=== PATIENT | male | born 1960 | race Caucasian/White ===

== ENCOUNTER → 2018-03-04 19:17 | Outpatient (CLI) | payer OTHER, SELFPAY ==
--- NOTE | 2018-03-04 19:20 | DI.MRI.S_ITS ---
PROCEDURE: MR SHOULDER RT WO CON INDICATIONS: 57 year-old male with right shoulder impingement syndrome, chronic right shoulder pain and decreased range of motion. TECHNIQUE: Noncontrast oblique coronal T2 fast spin echo with fat saturation, oblique sagittal T1 spin echo and T2 fast spin echo with fat saturation, axial T1 spin echo and T2 fast spin echo with fat saturation through the shoulder. COMPARISON: None. FINDINGS: Image quality: Compromised by large patient body habitus, as a dedicated shoulder coil was unable to be used. Rotator cuff: On coronal image 15, there is low to moderate grade partial-thickness articular surface tear involving the anterior supraspinatus tendon fibers. The infraspinatus and subscapularis tendons appear intact. No rotator cuff muscle atrophy on sagittal images. Bones and bursae: No bone marrow contusions or fractures. No acromioclavicular joint degeneration. The acromion demonstrates conventional anatomy, without an os acromiale. No pathologic subacromial-subdeltoid or subcoracoid bursal fluid is present. Capsule and soft tissues: In the absence of intra-articular contrast, the labrum and glenohumeral ligaments appear intact. The long head of the biceps tendon demonstrates normal location and morphology. The rotator interval appears normal, without fibrosis. The coracohumeral ligament is normal in thickness. IMPRESSION: Low to moderate grade partial-thickness articular surface tear of the anterior supraspinatus tendon fibers. Dictated by: Zen Alberto M.D. on 03/05/2018 at 10:28 Approved by: Zen Alberto M.D. on 03/05/2018 at 10:35
== END ==
PROVIDERS: Visit Provider Orthopaedic Surgery
DX: M75.111 Incomplete rotator cuff tear or rupture of right shoulder, not specified as traumatic (principal); M75.41 Impingement syndrome of right shoulder
CPT/HCPCS: 73221

== ENCOUNTER → 2018-04-22 18:32 | Outpatient (CLI) | payer OTHER, SELFPAY ==
--- NOTE | 2018-04-22 | DI.MRI.S_ITS ---
PROCEDURE: MR HAND LT WO/W CON INDICATIONS: ARTHROPATHY TECHNIQUE: Coronal and axial T1 spin echo and T2 fast spin echo with fat saturation. Post-contrast coronal and axial T1 spin echo with fat saturation images through the left hand and wrist. COMPARISON: None. FINDINGS: Image quality: Excellent. Bones and cartilage: 5 mm focus of T1 hypointensity, T2 hyperintensity and enhancement is seen within the fifth metacarpal head, for example image 13 series 4B with erosions. Additional foci with similar signal changes and enhancement present in the base of the index finger proximal phalanx as well as the pisiform (image 14 series 10 ) Synovium: There is diffuse synovial enhancement and thickening, which is most prominent at the second MTP joint although also present at the index finger PIP joint, and surrounding the ulnar styloid in keeping with synovitis. Soft tissues: Fluid surrounds the flexor tendon slips of the index finger in keeping with synovitis. No definite joint effusion seen. IMPRESSION: Pauci-articular erosions identified at the second MTP joint, pisiform and fifth metacarpal head. Index finger flexor tenosynovitis. Prominent second MTP joint synovitis, with additional involvement seen at the index finger PIP joint, and surrounding the ulnar styloid. Dictated by: Sandro Sharpe M.D. on 04/23/2018 at 8:52 Approved by: Sandro Sharpe M.D. on 04/23/2018 at 9:03
== END ==
PROVIDERS: Visit Provider Specialist/Technologist Athletic Trainer
DX: M65.842 Other synovitis and tenosynovitis, left hand (principal)
CPT/HCPCS: 73220; A9579

== ENCOUNTER → 2018-11-08 15:12 | Outpatient (CLI) | payer OTHER, SELFPAY ==
--- NOTE | 2018-11-08 | DI.RAD.S_ITS ---
PROCEDURE: XR CHEST 2V INDICATIONS: PERSISTENT COUGH,URI,CHILLS,SWEATS TECHNIQUE: 2 views of the chest were acquired. COMPARISON: None. FINDINGS: Surgical changes and devices: None. Lungs and pleura: No pleural effusions or pneumothorax. Lungs are clear. Mediastinum: Mediastinal contours are normal. Heart size is normal. Bones and chest wall: No suspicious bony abnormalities. Soft tissues appear unremarkable. IMPRESSION: No acute cardiopulmonary findings. Dictated by: Meena Cronin M.D. on 11/08/2018 at 16:58 Approved by: Meena Cronin M.D. on 11/08/2018 at 16:59
== END ==
PROVIDERS: Family Provider Nurse Practitioner Family; PCP Nurse Practitioner Family; Visit Provider Nurse Practitioner Family
DX: R05 Cough (principal); R61 Generalized hyperhidrosis; R68.83 Chills (without fever); J06.9 Acute upper respiratory infection, unspecified
CPT/HCPCS: 71046

== ENCOUNTER 2020-11-03 10:19 | Emergency (ER) | payer OTHER, SELFPAY ==
[2020-11-03] VITALS (10 sets, daily range): BP systolic 142–182; BP diastolic 88–91; PULSE 77–87; RESP 12–22; TEMP 36.7; O2SAT 97–100; BMI 31.3
--- NOTE | 2020-11-03 10:30 | DI.RAD.S_ITS ---
PROCEDURE: XR CHEST 1V INDICATIONS: chest pain TECHNIQUE: One view of the chest was acquired. COMPARISON: [facility], CR, XR CHEST 2V, 11/08/2018, 15:19. FINDINGS: Surgical changes and devices: None. Lungs and pleura: Lungs are clear. No pleural effusions or pneumothorax. Mediastinum: Mediastinal contours appear normal. Heart size is normal. Bones and chest wall: No suspicious bony lesions. Overlying soft tissues appear unremarkable. IMPRESSION: No acute cardiopulmonary disease. Dictated by: Harley Hamilton M.D. on 11/03/2020 at 11:55 Approved by: Harley Hamilton M.D. on 11/03/2020 at 12:00
--- NOTE | 2020-11-03 10:32 | ED.CHESTPAIN ---
HPI - Chest Pain General Chief Complaint: Chest Pain Stated Complaint: Heavy Feeling in chest Time Seen by Provider: 11/03/20 10:29 Source: patient Mode of arrival: Ambulatory Limitations: no limitations History of Present Illness HPI narrative: Patient is a 59-year-old male. History of hypertension. Also has a history of psoriasis and psoriatic arthritis. Takes methotrexate for this. Is here for evaluation of chest pressure. He states he has had constant pressure for at least the past 3 weeks. He states that he goes to bed with it at night and wakes up with a him morning. Does not seem to get better worse with movement or palpation or breathing. He also states that for the same amount of time especially at night he has palpitations. He states this happens most the time when he lays down. Has had it during the day but most often occurs at night. Related Data Home Medications Medication Instructions Recorded Confirmed losartan [Cozaar] 100 mg PO BEDTIME #0 05/10/17 11/03/20 amlodipine 5 mg tablet 5 mg PO QAM 10/27/18 11/03/20 folic acid 1 mg tablet 1 mg PO DAILY 10/27/18 11/03/20 methotrexate sodium 2.5 mg tablet 20 mg PO QWEEK tab 10/27/18 11/03/20 Allergies Allergy/AdvReac Type Severity Reaction Status Date / Time No Known Drug Allergies Allergy Verified 11/03/20 10:27 Review of Systems Constitutional Constitutional: Denies fever(s) and Denies headache(s) Eyes Eyes: Denies change in vision ENT Ears, Nose, Mouth, and Throat: Denies headache(s) Cardiovascular Cardiovascular: Denies syncope, Denies irregular heart rhythm, Reports palpitations (Pounding) and Denies dyspnea Comments: Chest pressure Respiratory Respiratory: Denies cough and Denies dyspnea Gastrointestinal Gastrointestinal: Denies abdominal pain, Denies nausea and Denies vomiting Genitourinary Genitourinary: Denies dysuria Genitourinary: Denies dysuria Neurologic Neurologic: Denies behavioral changes, Denies confusion, Denies syncope and Denies headache(s) Psychiatric Psychiatric: Denies behavioral changes and Denies confusion Endocrine Endocrine: Reports palpitations (Pounding) Patient History Medical History Hypertension Psoriasis Psoriatic arthritis Social History (Reviewed 11/03/20 @ 10:58 by TEOFILO Cowan Smoking Status: Never smoker Smoking Status: Never smoker alcohol intake frequency: 0-2 drinks per day Substance Use Type: does not use Exam Initial Vital Signs Initial Vital Signs: Vital Signs Temperature 98.1 F 11/03/20 10:20 Pulse Rate 87 11/03/20 10:20 Respiratory Rate 14 11/03/20 10:20 Blood Pressure 182/90 H 11/03/20 10:20 Pulse Oximetry 99 11/03/20 10:20 Const General: cooperative and comfortable Limitations: mental status not altered HENMT Head: normal to inspection and normocephalic Resp Effort & Inspection: normal respiratory effort Auscultation: clear to auscultation bilaterally Cardio Rhythm: regular rhythm GI Inspection: non-distended Palpation: soft Skin Lesions: no lesions Rashes: no rashes Neuro General: patient alert, patient awake and patient oriented x3 Cognition: normal cognition Speech: speech normal Extrem General: capillary refill normal Psych Appearance: grossly normal and well kempt Scores GCS Amadou coma scale eye opening: Spontaneous [place] coma scale verbal response: Orientated Amadou coma scale motor response: Obey commands [place] coma scale total score: 15 HEART Score Heart Score history: Slightly Suspicious Heart Score EKG: Normal Heart Score Age: 45-64 years old Heart Score risk factors: 1-2 risk factors Heart Score troponin: < or = to normal limit Heart Score Total: 2 Course Orders Ordered: ED Orders 11/03/20 10:26 Complete Blood Count AUTO DIFF Stat Comprehensive Metabolic Panel Stat Lipase Stat Troponin & CK Cardiac Panel Stat 11/03/20 10:30 XR chest 1V Stat EKG-12 Lead Stat Vital Signs Vital signs: Vital Signs - 8 hr 11/03/20 10:20 11/03/20 10:24 11/03/20 10:30 Temperature 98.1 F Pulse Rate 87 84 82 Respiratory Rate 14 19 17 Blood Pressure 182/90 H Pulse Oximetry 99 100 99 11/03/20 10:45 11/03/20 11:00 11/03/20 11:08 Temperature Pulse Rate 84 79 78 Respiratory Rate 22 12 15 Blood Pressure 145/89 H Pulse Oximetry 99 98 98 11/03/20 11:15 11/03/20 11:30 11/03/20 11:45 Temperature Pulse Rate 77 77 78 Respiratory Rate 15 13 19 Blood Pressure 148/88 H 146/89 H 142/91 H Pulse Oximetry 99 98 97 11/03/20 12:00 Temperature Pulse Rate 77 Respiratory Rate 13 Blood Pressure 142/91 H Pulse Oximetry 99 MDM - Chest Pain Lab Data Attestation: I reviewed the patient's lab results. Result diagrams: 11/03/20 10:26 11/03/20 10:26 Labs: Lab Results 11/03/20 11/03/20 Range/Units 10:26 10:26 WBC 12.3 H (4.5-11.0) X10^3/uL RBC 5.59 (4.5-5.9) X10^6/uL Hgb 18.0 H (13.5-17.5) g/dL Hct 52.9 (41-53) % MCV 94.6 (80-100) fL MCH 32.2 (26-34) PG MCHC 34.0 (30-36) % RDW 13.5 (11.6-14.8) % Plt Count 231 (150-400) X10^3/uL Neut % (Auto) 59.4 (50-75) % Lymph % (Auto) 27.6 (25-40) % [place] % (Auto) 10.8 (3-14) % Eos % (Auto) 1.3 L (2-4) % Baso % (Auto) 0.9 (0-2) % Neut # (Auto) 7300 H (8020-4773) /uL Lymph # (Auto) 3400 (3627-4434) /uL [place] # (Auto) 1300 H (0-900) /uL Eos # (Auto) 200 (0-450) /uL Baso # (Auto) 100 (0-100) /uL Sodium 140 (137-145) mmol/L Potassium 3.7 (3.4-5.1) mmol/L Chloride 106 (98-107) mmol/L Carbon Dioxide 27 (22-32) mmol/L BUN 15 (9-20) mg/dL Creatinine 0.94 (0.66-1.25) mg/dL Estimated GFR > 60.0 (>60) mL/min BUN/Creatinine Ratio 16.0 (6-22) Glucose 86 (80-110) mg/dL Calcium 9.1 (8.4-10.2) mg/dL Total Bilirubin 0.4 (0.2-1.3) mg/dL AST 30 (17-59) IU/L ALT 39 (<50) IU/L Alkaline Phosphatase 69 (38-126) U/L Total Creatine Kinase 73 (55-170) U/L CK-MB (CK-2) TNP CK-MB (CK-2) Rel Index TNP Troponin I < 0.012 (0.01-0.034) ng/mL Total Protein 7.4 (6.3-8.2) g/dL Albumin 4.6 (3.5-5.0) g/dL Globulin 2.8 (1.7-4.1) g/dL Albumin/Globulin Ratio 1.6 (1.0-2.8) Lipase 158 (23-300) U/L Imaging Data Chest x-ray: Radiologist's Impression: [address] [address]BV[address] ReportSigned Patient: Fabian Celis LMR#: [id number]: 1960Acct:[id number]/Sex: 59 / MDate of Service: 11/03/20Loc: EDAccession Number: [id number] Procedure: XR chest 1V Ordering Provider: Alberto Nicole D.O. PROCEDURE: XR CHEST 1V INDICATIONS: chest pain TECHNIQUE: One view of the chest was acquired. COMPARISON: [facility], , XR CHEST 2V, 11/08/2018, 15:19. FINDINGS: Surgical changes and devices: None. Lungs and pleura: Lungs are clear. No pleural effusions or pneumothorax. Mediastinum: Mediastinal contours appear normal. Heart size is normal. Bones and chest wall: No suspicious bony lesions. Overlying soft tissues appear unremarkable. IMPRESSION: No acute cardiopulmonary disease. Dictated by: Harley Hamilton M.D. on 11/03/2020 at 11:55 Approved by: Harley Hamilton M.D. on 11/03/2020 at 12:00 ECG Data Attestation: I personally reviewed and interpreted this ECG as follows: Prior ECG tracings: not available for review Interpretation: Sinus rhythm Ventricular rate of 85 Normal axis Normal QRS Normal QTC No ST T wave changes MDM Narrative Medical decision making narrative: Patient is a low risk heart score. Has had no ectopy on the monitors. Troponin is negative after several weeks of chest pressure. Discussed with him the importance of following up with his primary doctor to discuss stress testing. With regard to his palpitations informed that he should talk to his primary doctor about obtaining a Holter monitor. He was given return precautions and follow-up instructions. He expressed understanding and agreement. Discharge Plan Departure Patient Disposition: Home Clinical Impression: Atypical chest pain, Heart palpitations Instructions: DI for Atypical Chest Pain, DI for Palpitations Activity Restrictions/Additional Instructions: Recommend you talk with your primary doctor about further evaluation to include stress testing and a Holter monitor. Return to the emergency department for any new or worsening symptoms Prescriptions: No Action methotrexate sodium 2.5 mg tablet 20 mg PO QWEEK RF: 0 folic acid 1 mg tablet 1 mg PO DAILY RF: 0 amlodipine 5 mg tablet 5 mg PO QAM RF: 0 losartan [Cozaar] 100 MG tablet 100 mg PO BEDTIME Qty: 0 RF: 0 Referrals: Elly Busch ARNP [Primary Care Provider] -
[2020-11-03 10:37] LABS: Add Manual Diff / Slide Review NO; Basophils Absolute Auto 100 /uL (0-100); Basophils Percent Auto 0.9 % (0-2); Eosinophils Absolute Auto 200 /uL (0-450); Eosinophils Percent Auto 1.3 % (2-4); Hematocrit 52.9 % (41-53); Lymphocytes Absolute Auto 3400 /uL (1100-4500); Lymphocytes Percent Auto 27.6 % (25-40); Mean Corpuscular Hemoglobin 32.2 PG (26-34); Mean Corpuscular Volume 94.6 fL (80-100); Monocytes Absolute Auto 1300 /uL (0-900); Monocytes Percent Auto 10.8 % (3-14); Neutrophils Absolute Auto 7300 /uL (1500-7000); Neutrophils Percent Auto 59.4 % (50-75); Platelet Count 231 X10^3/uL (150-400); Red Blood Cell Count 5.59 X10^6/uL (4.5-5.9); Red Cell Distribution Width 13.5 % (11.6-14.8); White Blood Cell Count 12.3 X10^3/uL (4.5-11.0)
[2020-11-03 10:43] LABS: Alanine Aminotransferase 39 IU/L (<50); Albumin 4.6 g/dL (3.5-5.0); Albumin Globulin Ratio 1.6 (1.0-2.8); Alkaline Phosphatase 69 U/L (38-126); Aspartate Aminotransferase 30 IU/L (17-59); Bilirubin Total 0.4 mg/dL (0.2-1.3); Blood Urea Nitrogen 15 mg/dL (9-20); Calcium 9.1 mg/dL (8.4-10.2); Carbon Dioxide 27 mmol/L (22-32); Chloride 106 mmol/L (98-107); Creatine Kinase 73 U/L (55-170); Estimated Glomerular Filt Rate > 60.0 mL/min (>60); Globulin 2.8 g/dL (1.7-4.1); Glucose 86 mg/dL (80-110); HEMOLYSIS < 15 (0-50); Lipase 158 U/L (23-300); Potassium 3.7 mmol/L (3.4-5.1); Sodium 140 mmol/L (137-145); Total Protein 7.4 g/dL (6.3-8.2)
[2020-11-03 10:54] LABS: Troponin I < 0.012 ng/mL (0.01-0.034)
== END 2020-11-03 12:31 | disposition home or self-care (01) ==
PROVIDERS: Emergency Provider Emergency Medicine; Family Provider Nurse Practitioner Family; PCP Nurse Practitioner Family
DX: R07.89 Other chest pain (principal); R00.2 Palpitations; I10 Essential (primary) hypertension
CPT/HCPCS: 36415; 71045; 80053; 82550; 83690; 84484; 85025; 93005; 93010; 99283; 99284

== ENCOUNTER → 2021-12-28 09:23 | Outpatient (CLI) | payer OTHER, SELFPAY ==
--- NOTE | 2021-12-28 | DI.ECHO.S_ITS ---
[facility] +---------+ : : [address] [place] : : : : [id number] : : : : Phone: [phone]+ Echocardiogram Report + + :Name: HENNY OQUENDO Study Date: 12/28/2021 Height: 76 in : :[facility] ReadingLocation: Weight: 260 lb : : Gender: Male BSA: 2.5 m2 : :: 1960 Age: 61 yrs BP: 151/98 mmHg: :Reason For Study: EDEMA/ TACHYCARDIA/ HYPERTENSION : :Ordering Physician: UDAY, : :JAYNE Performed By: Fang Zuniga : :Referring: JAYNE FRYE : + + Interpretation Summary 1) Normal left ventricular thickness, size, wall motion, and systolic function (EF 55-60%). 2) The right ventricle is mildly dilated. Right ventricular systolic function is at the lower limits of normal. 3) No significant valvular abnormalities. 4) The aortic root is mildly dilated. 5) No prior Echo available for comparison. Procedure: A two-dimensional transthoracic echocardiogram with color flow and Doppler was performed. The study quality was technically adequate. There is no prior echocardiogram noted for this patient. The patient was in sinus rhythm with heart rates between 65-70 bpm during the exam. Left Ventricle: The left ventricle is normal in size and wall thickness. The ejection fraction is estimated to be 55-60%. Left ventricular systolic function appears normal without focal wall motion abnormalities. Right Ventricle: The right ventricle is mildly dilated. Right ventricular systolic function is at the lower limits of normal. Atria: The left atrial size is normal. Right atrial size is normal. There is no Doppler evidence for an interatrial shunt. Mitral Valve: The mitral valve is normal in structure and function. There is trace mitral regurgitation. Aortic Valve: The aortic valve is trileaflet. The aortic valve opens well. There is no aortic valve stenosis. No aortic regurgitation is present. Tricuspid Valve: The tricuspid valve is normal in structure and function. There is trace tricuspid regurgitation. Pulmonary artery pressures cannot be estimated because of the lack of a measurable TR jet velocity. Pulmonic Valve: The pulmonic valve leaflets are thin and pliable; valve motion is normal. There is trace pulmonic regurgitation. Great Vessels: The aortic root is mildly dilated. The ascending aorta is at the upper limits of normal in size. The IVC is of normal diameter and collapses greater than 50% with a sniff. This suggests a low right atrial pressure of 3 mm Hg. Pericardium/ Pleura There is no pericardial effusion. There is no pleural effusion. MMode/2D Measurements & Calculations LVIDd: 4.9 cm LVOT diam: 2.1 cm LVIDs: 3.6 cm Ao root diam: 4.1 cm FS: 26.2 % asc Aorta Diam: 3.6 cm IVSd: 0.97 cm Ao Arch Diam (Prox Trans): 2.9 cm LVPWd: 0.83 cm LV quiroz. diameter/BSA (cm/m^2): 2.0 LV sys. diameter/BSA (cm/m^2): 1.5 LA A2 area: 24.2 cm2 RA long axis: 5.7 cm LA A4 area: 21.1 cm2 RA area: 18.5 cm2 LA length (vol): 5.9 cm RA vol: 50.9 ml LA vol: 73.4 ml RA : 20.5 ml/m2 LA vol index: 29.7 ml/m2 IVC diam: 1.6 cm RVD1 (basal): 4.1 cm RVD2 (mid): 3.8 cm TAPSE: 2.0 cm Doppler Measurements & Calculations Ao V2 max: 114.5 cm/sec LVOT Max Jeffery: 85.3 cm/sec Ao V2 mean: 83.2 cm/sec LV V1 max P.9 mmHg Ao max P.2 mmHg LV V1 VTI: 19.4 cm Ao mean P.1 mmHg CL[place]ON(I,D): 2.6 cm2 Ao V2 VTI: 26.6 cm [place](V,D): 2.6 cm2 sev ratio: 0.73 [place] indexed to BSA (cm^2/m^2): 1.0 MV E max jeffery: 68.4 cm/sec PA V2 max: 93.0 cm/sec MV A max jeffery: 78.4 cm/sec PA V2 mean: 67.7 cm/sec MV E/A: 0.87 PA mean P.0 mmHg Med Peak E' Jeffery: 7.1 cm/sec PA pr(Accel): 19.1 mmHg E/E' med: 9.6 Lat Peak E' Jeffery: 9.0 cm/sec E/E' lat: 7.6 E/e' average: 8.6 MV dec time: 0.18 sec SVLVOT): 67.9 ml Reading Physician:10:49 AM
== END ==
PROVIDERS: Family Provider Nurse Practitioner Family; PCP Internal Medicine; Referring Provider Internal Medicine; Visit Provider Internal Medicine
DX: I77.810 Thoracic aortic ectasia (principal); R60.0 Localized edema; R00.0 Tachycardia, unspecified; I10 Essential (primary) hypertension
CPT/HCPCS: 93306

== ENCOUNTER → 2022-03-06 14:49 | Outpatient (CLI) | payer OTHER, SELFPAY ==
[2022-03-06 17:39] LABS: COVID19 -Nasal RAPID Negative (Negative)
== END ==
PROVIDERS: Family Provider Nurse Practitioner Family; PCP Internal Medicine; Visit Provider Family Medicine Sleep Medicine
DX: Z20.822 Contact with and (suspected) exposure to COVID-19 (principal)
CPT/HCPCS: 87635; C9803

== ENCOUNTER → 2022-03-07 14:36 | Outpatient (CLI) | payer OTHER, SELFPAY ==
--- NOTE | 2022-03-08 05:45 | DI.NM.S_ITS ---
DATE OF SERVICE: PROCEDURE: Exercise stress test INDICATION: Palpitation with underlying supraventricular tachycardia. EXERCISE TREADMILL TESTING: The patient underwent exercise stress test under the supervision of an attending staff. The patient walked on Dashawn protocol for 7 minutes and 35 seconds, achieved 87 percent of target heart rate and normal blood pressure response. Resting blood pressure 122/82 mmHg. Peak blood pressure 172/86 mmHg. Achieved 10.1 METs of workload. Functional aerobic impairment positive 9 percent. No chest discomfort. Had some shortness of breath. Baseline rhythm was sinus. During stress, no convincing ischemic changes seen. Rare premature atrial contractions were seen. No significant sustained arrhythmias seen. CONCLUSION: Exercise stress test is negative for inducible ischemia. Normal hemodynamic response. Functional aerobic impairment positive 9 percent suggestive of diminished exercise tolerance. No ischemic EKG changes seen. No significant sustained arrhythmias seen. Overall low-risk exercise stress test. Fabian Celis - FATUMA/jack/HOSEA doc#: [id number]/job#: [id number] dd: 03/07/2022 17:55:00 dt: 03/07/2022 20:11:00 DICTATING /COPIES TO: Rhina Herrera MD COPIES MNE: DORIS;
== END ==
PROVIDERS: Family Provider Nurse Practitioner Family; PCP Internal Medicine; Referring Provider Internal Medicine; Visit Provider Internal Medicine
DX: I77.810 Thoracic aortic ectasia (principal); I51.7 Cardiomegaly; I47.1 Supraventricular tachycardia; R60.0 Localized edema
CPT/HCPCS: 93017

== ENCOUNTER → 2023-11-05 16:24 | Outpatient (CLI) | payer OTHER, SELFPAY ==
--- NOTE | 2023-11-05 16:26 | DI.RAD.S_ITS ---
PROCEDURE: XR CHEST 2V INDICATIONS: ACUTE SOB TECHNIQUE: 2 views of the chest were acquired. COMPARISON: None FINDINGS: Surgical changes and devices: None. Lungs and pleura: Lungs are clear. No pleural effusions or pneumothorax. Mediastinum: Mediastinal contours are normal. Heart size is normal. Bones and chest wall: No suspicious bony abnormalities. Soft tissues appear unremarkable. IMPRESSION: No acute cardiopulmonary abnormality is seen. Dictated by: Jake Riley M.D. on 11/05/2023 at 18:32 Approved by: Jake Riley M.D. on 11/05/2023 at 18:33
== END ==
LOC: RAD 16:24
PROVIDERS: Family Provider Nurse Practitioner Family; PCP Internal Medicine; Referring Provider Internal Medicine; Visit Provider Internal Medicine
DX: R05.1 Acute cough (principal)
CPT/HCPCS: 0241U; 71046

== ENCOUNTER → 2023-11-05 16:34 | Outpatient (ROUT) | payer OTHER, SELFPAY ==
[2023-11-05 17:32] LABS: Influenza A - CEPHEID Flu A NEGATIVE (NEGATIVE); Influenza B - CEPHEID Flu B NEGATIVE (NEGATIVE); Respiratory Syncytial Virus POSITIVE (Negative)
[2023-11-05 17:33] LABS: COVID-19 CEPHEID 4-PLEX PCR POSITIVE (Negative)
== END ==
PROVIDERS: Family Provider Nurse Practitioner Family; PCP Internal Medicine; Visit Provider Internal Medicine
DX: R05.1 Acute cough (principal)
CPT/HCPCS: 0241U

== ENCOUNTER → 2024-07-23 11:19 | Outpatient (CLI) | payer OTHER, SELFPAY ==
[2024-07-23 12:57] LABS: Add Manual Diff / Slide Review NO; Basophils Absolute Auto 0 /uL (0-100); Basophils Percent Auto 0.4 % (0-2); Eosinophils Absolute Auto 100 /uL (0-450); Eosinophils Percent Auto 1.7 % (2-4); Hematocrit 51.8 % (41-53); Hemoglobin 17.8 g/dL (13.5-17.5); Lymphocytes Absolute Auto 1700 /uL (1100-4500); Lymphocytes Percent Auto 23.9 % (25-40); Mean Corpuscular HGB Conc 34.3 % (30-36); Mean Corpuscular Hemoglobin 30.9 PG (26-34); Monocytes Absolute Auto 700 /uL (0-900); Monocytes Percent Auto 10.3 % (3-14); Neutrophils Absolute Auto 4600 /uL (1500-7000); Neutrophils Percent Auto 63.7 % (50-75); Platelet Count 186 X10^3/uL (150-400); Red Blood Cell Count 5.76 X10^6/uL (4.5-5.9); Red Cell Distribution Width 12.8 % (11.6-14.8); White Blood Cell Count 7.2 X10^3/uL (4.5-11.0)
[2024-07-23 13:47] LABS: Erythrocyte Sedimentation Rate 1 MM/HR (0-15)
[2024-07-23 15:05] LABS: Alanine Aminotransferase 41 IU/L (<50); Albumin 4.4 g/dL (3.5-5.0); Albumin Globulin Ratio 1.8 (1.0-2.8); Alkaline Phosphatase 63 U/L (38-126); Aspartate Aminotransferase 30 IU/L (17-59); BUN Creatinine Ratio 16.1 (6-22); Bilirubin Total 0.9 mg/dL (0.2-1.3); Blood Urea Nitrogen 18 mg/dL (9-20); C-Reactive Protein Quant < 0.5 mg/dL (<1.0); Calcium 9.2 mg/dL (8.4-10.2); Carbon Dioxide 27 mmol/L (22-32); Chloride 106 mmol/L (98-107); Cholesterol 129 mg/dL (140-199); Estimated Glomerular Filt Rate > 60 mL/min (>60); Globulin 2.5 g/dL (1.7-4.1); Glucose 90 mg/dL (80-110); HDL Cholesterol 40 mg/dL (40-60); HEMOLYSIS < 15 (0-50); LDL Cholesterol Calculated 15 mg/dL (<100); Potassium 4.2 mmol/L (3.4-5.1); Sodium 141 mmol/L (137-145); Total Protein 6.9 g/dL (6.3-8.2); Triglycerides 368 mg/dL (35-150)
[2024-07-23 15:32] LABS: TSH w/ Reflex to FT4 1.79 uIU/mL (0.47-4.68)
[2024-07-23 15:34] LABS: Prostate Specific Antigen Scrn 0.947 ng/mL (0.1-4.0)
== END ==
PROVIDERS: Family Provider Nurse Practitioner Family; PCP Internal Medicine; Referring Provider Internal Medicine; Visit Provider Internal Medicine
DX: E78.2 Mixed hyperlipidemia (principal); L40.50 Arthropathic psoriasis, unspecified; Z12.5 Encounter for screening for malignant neoplasm of prostate
CPT/HCPCS: 36415; 80053; 80061; 84443; 85025; 85651; 86140; G0103

== ENCOUNTER → 2024-10-20 15:06 | Outpatient (CLI) | payer OTHER, SELFPAY ==
[2024-10-20 15:26] LABS: Add Manual Diff / Slide Review NO; Basophils Absolute Auto 100 /uL (0-100); Eosinophils Absolute Auto 100 /uL (0-450); Eosinophils Percent Auto 1.8 % (2-4); Hematocrit 52.6 % (41-53); Hemoglobin 18.2 g/dL (13.5-17.5); Lymphocytes Absolute Auto 2000 /uL (1100-4500); Lymphocytes Percent Auto 26.7 % (25-40); Mean Corpuscular HGB Conc 34.6 % (30-36); Mean Corpuscular Hemoglobin 31.5 PG (26-34); Mean Corpuscular Volume 91.2 fL (80-100); Monocytes Absolute Auto 700 /uL (0-900); Monocytes Percent Auto 9.9 % (3-14); Neutrophils Absolute Auto 4400 /uL (1500-7000); Neutrophils Percent Auto 60.6 % (50-75); Platelet Count 178 X10^3/uL (150-400); Red Blood Cell Count 5.77 X10^6/uL (4.5-5.9); Red Cell Distribution Width 13.4 % (11.6-14.8); White Blood Cell Count 7.3 X10^3/uL (4.5-11.0)
[2024-10-20 15:55] LABS: Alanine Aminotransferase 53 IU/L (<50); Albumin 4.5 g/dL (3.5-5.0); Albumin Globulin Ratio 1.9 (1.0-2.8); Alkaline Phosphatase 58 U/L (38-126); Aspartate Aminotransferase 37 IU/L (17-59); BUN Creatinine Ratio 16.9 (6-22); Bilirubin Total 0.5 mg/dL (0.2-1.3); Blood Urea Nitrogen 21 mg/dL (9-20); C-Reactive Protein Quant < 0.5 mg/dL (<1.0); Calcium 9.1 mg/dL (8.4-10.2); Carbon Dioxide 30 mmol/L (22-32); Chloride 105 mmol/L (98-107); Estimated Glomerular Filt Rate > 60 mL/min (>60); Globulin 2.4 g/dL (1.7-4.1); Glucose 92 mg/dL (80-110); HEMOLYSIS < 15 (0-50); Potassium 3.9 mmol/L (3.4-5.1); Sodium 140 mmol/L (137-145); Total Protein 6.9 g/dL (6.3-8.2)
[2024-10-20 16:40] LABS: Erythrocyte Sedimentation Rate 1 MM/HR (0-15)
== END ==
PROVIDERS: Family Provider Nurse Practitioner Family; PCP Internal Medicine; Referring Provider Physician Assistant Medical; Visit Provider Physician Assistant Medical
DX: L40.50 Arthropathic psoriasis, unspecified (principal)
CPT/HCPCS: 36415; 80053; 85025; 85651; 86140; 86480